=== PATIENT | female | born 1945 | race Caucasian/White ===

== ENCOUNTER → 2016-10-28 | Day surgery (SDC) | payer OTHER ==
[~2016-10-28] MED LIST: ALLERGY25 MG PO; ASPIRIN EC81 M1 PO; ASPIRIN PO; ASPIRIN81 M1 PO; ATORVASTATIN CA10 MG PO; CALCIUM; CALCIUM + D 6001 TA1 PO; CALCIUM 500+D C1 TAB PO; CLOBETASOL E 0.60 GM TOP; ECOTRIN81 M1 PO; FELODIPINE ER5 MG PO; FISH OIL 1,2001 CAP; FLEXERIL10 MG PO; GLUCOSAMINE 1,51 CA1; HYDROCHLOROTH12.5 MG PO; HYDROXYZINE HCL25 M1 PO; IMURAN50 MG PO; LEVOTHROID112 MCG PO; LIPITOR PO; LIPITOR20 MG PO; LOPRESSOR PO; MULTI VITAMIN1 EACH PO; MULTI-DAY VITAM1 TAB PO; MULTI-DAY1 TAB PO; MULTI-VITAMIN1 TAB PO; OYSTER CALCIUM500 MG PO; PERCOCET5/325 PO; PHENERGAN25 MG PO; PLENDIL PO; POTASSIUM; POTASSIUM99 M1 PO; POTASSIUM99 M2 PO; PREDNISONE10 MG/DOSE PO; SYNTHROID PO; SYNTHROID112 MCG PO; TEMOVATE E TP; TYLOX 5-500 MG1 EACH PO; VICODIN 5/500 T1 TAB PO; VIT D; [UNRECOGNIZED DRUG - OTHER]; [UNRECOGNIZED DRUG - OTHER]
--- NOTE | ~2016-10-28 | OR ---
Unit #: [id number] #: [id number] Patient: Jameson COFFMAN [id number] [address] [id number] MR#: [id number] NAME: Jameson COFFMAN ROOM: Date of Procedure: 10/28/2016 Admission Date: 10/28/2016 Surgeon: Reynalod Mckeon M.D. : 1945 Attending Physician: Reynaldo Mckeon M.D. Primary Care Physician: Liset Valenzuela M.D. OPERATIVE REPORT PROCEDURES PERFORMED Colonoscopy with snare polypectomy and internal hemorrhoidal banding x3. INDICATIONS FOR PROCEDURE The patient with recurrent blood in the stool, history of large polyp, ascending colon in the past. MEDICATIONS Monitored anesthesia. POSTOPERATIVE FINDINGS 1. Two polyps, one at 1 cm and another 0.5 cm, ascending colon, snared and sent for histopathology. 2. Two polyps in descending colon, 5 mm each, snared and sent for histopathology. 3. Grade 3 internal hemorrhoids. Three bands were placed. PLAN Follow up on the pathology report. Repeat colonoscopy in 3 years. DESCRIPTION OF PROCEDURE The patient was explained of the procedure, risks, and benefits along with risks and benefits of anesthesia. She was brought to the endoscopy room. Propofol anesthesia was given. Bite block was placed. The scope was passed down the mouth into the esophagus, stomach, duodenum, and distal duodenum. Findings as described. Polyps were snared as described. I retroflexed in the rectum, large internal hemorrhoids noted. At this point, we pulled the scope out and pushed an EGD scope with multi-shooter and placed 3 bands right above the dentate line at the 3 largest internal hemorrhoids. The scope was gently pulled out. She tolerated it well. No major complications were seen. Dictated by... Carl Levine/areli TD: 10/29/2016 00:40 JOB #: [id number] Unit #: [id number] #: [id number] Patient: Jameson COFFMAN OPERATIVE REPORT Page 1 of 1 X Reynaldo Mckeon MD PROCEDURE OPERATIVE NOTE
== END | disposition home or self-care (01) ==
LOC: COPS 06:46
DX: D12.2 Benign neoplasm of ascending colon (principal); D12.4 Benign neoplasm of descending colon; K64.2 Third degree hemorrhoids; E89.0 Postprocedural hypothyroidism; R01.1 Cardiac murmur, unspecified; E78.5 Hyperlipidemia, unspecified; I10 Essential (primary) hypertension; Z87.19 Personal history of other diseases of the digestive system; Z95.1 Presence of aortocoronary bypass graft; Z88.6 Allergy status to analgesic agent; Z88.8 Allergy status to other drugs, medicaments and biological substances; Z79.82 Long term (current) use of aspirin; Z79.899 Other long term (current) drug therapy
CPT/HCPCS: 88305; J3010

== ENCOUNTER → 2016-11-14 | Outpatient (CLI) | payer OTHER ==
[2016-11-14 07:50] LABS: HEMATOCRIT 44.3 % (35.0-45.0); HEMOGLOBIN 14.4 gm/dL (12.0-16.0); MEAN CORPUSCULAR HEMOGLOBIN 29.5 PG (28-34); MEAN CORPUSCULAR HGB CONC 32.4 g/dL (30-36); MEAN PLATELET VOLUME 8.2 FL (6.5-11.5); RED BLOOD COUNT 4.87 X10e (3.90-5.30); RED CELL DISTRIBUTION WIDTH 13.3 % (11.0-15.5); WHITE BLOOD COUNT 6.2 X10e3 (4.0-10.5)
[2016-11-14 08:28] LABS: ALBUMIN SERUM 3.9 g/dL (3.5-5.0); BILIRUBIN,TOTAL 0.7 mg/dL (0.2-2.0); BUN/CREATININE RATIO 18.57; CREATININE SERUM 0.7 mg/dL (0.6-1.4); POTASSIUM 3.5 mmol/L (3.5-5.1); PROTEIN TOTAL SERUM 7.5 g/dL (6.0-8.3)
== END | disposition home or self-care (01) ==
LOC: CLAB 07:09
PROVIDERS: Surgery
DX: K75.4 Autoimmune hepatitis (principal)
CPT/HCPCS: 36415; 80053; 82105; 85027

== ENCOUNTER → 2017-02-20 | Outpatient (CLI) | payer OTHER ==
[2017-02-20 08:44] LABS: HEMATOCRIT 41.5 % (35.0-45.0); HEMOGLOBIN 14.2 gm/dL (12.0-16.0); MEAN CELL VOLUME 89.9 FL (83-96); MEAN CORPUSCULAR HEMOGLOBIN 30.8 PG (28-34); MEAN CORPUSCULAR HGB CONC 34.2 g/dL (30-36); MEAN PLATELET VOLUME 8.3 FL (6.5-11.5); RED BLOOD COUNT 4.61 X10e (3.90-5.30); RED CELL DISTRIBUTION WIDTH 13.6 % (11.0-15.5); WHITE BLOOD COUNT 7.8 X10e3 (4.0-10.5)
[2017-02-20 09:14] LABS: BILIRUBIN,TOTAL 0.5 mg/dL (0.2-2.0); CREATININE SERUM 0.9 mg/dL (0.6-1.4); GLOM FILT RATE Estimated 63.5 mL/min (>60); POTASSIUM 4.1 mmol/L (3.5-5.1); PROTEIN TOTAL SERUM 7.8 g/dL (6.0-8.3)
== END | disposition home or self-care (01) ==
LOC: CLAB 08:17
PROVIDERS: Internal Medicine
DX: K75.4 Autoimmune hepatitis (principal)
CPT/HCPCS: 36415; 80053; 85027